=== PATIENT | female | born 1960 | race Asian ===

== ENCOUNTER 2020-04-02 07:41 | Day surgery (SDC) | payer MEDICAID ==
[~2020-04-02] VITALS: Ht 160 cm; Wt 54.5 kg
[~2020-04-02 07:41] MED LIST: HYDR-4353 PO; IBUP-1986 PO; LANS30CA37 PO; [UNRECOGNIZED DRUG - REMARK] PO
[2020-04-02 07:50] VITALS: BP 116/74
[2020-04-02] MEDS ORDERED: LIDOcaine Viscous 15ml cup ONE (07:59)
[2020-04-02] MEDS ORDERED: MIDAZolam 5mg/5ml vial ONE (07:59)
[2020-04-02] MEDS ORDERED: fentaNYL/PF 50MCG/1 ML 2ML syringe ONE (07:59)
[2020-04-02 09:05] VITALS: BP 124/73
[2020-04-02 09:15] VITALS: BP 103/70
[2020-04-02 09:25] VITALS: BP 108/68
== END 2020-04-02 09:40 | disposition home or self-care (01) ==
LOC: GI LAB 07:41
PROVIDERS: ATTEND Internal Medicine Gastroenterology
DX: K74.60 Unspecified cirrhosis of liver (principal)
CPT/HCPCS: 43235; 99152; J2250; J3010; J7040; A4620

== ENCOUNTER → 2024-05-07 | Outpatient (CLI) | payer MEDICAID | END | disposition home or self-care (01) | LOC: RAD 09:04 | PROVIDERS: ATTEND Nurse Practitioner | DX: N28.9 Disorder of kidney and ureter, unspecified (principal); B18.1 Chronic viral hepatitis B without delta-agent | CPT/HCPCS: 76700 ==